=== PATIENT | male | born 1955 | race Caucasian/White ===

== ENCOUNTER → 2017-04-24 | Outpatient (CLI) | payer MEDICARE ==
[~2017-04-24] MED LIST: EFFEXOR XR DPS150 M1 PO; FENOFIBRATE145 MG PO; FLEXERIL-DPS10 MG PO; GLUCOPHAGE-DPS500 MG PO; HAWTHORN BERRY500 MG PO; LANTUS100 UNITS/ SQ; LIPITOR DPS40 MG PO; LORTAB 5-325 M1 EACH PO; MAGNESIUM250 M1 PO; MIRAPEX0.5 MG PO; NAPROSYN DPS500 MG PO; NEURONTIN DPS100 MG PO; NOVOLIN 70100 UNITS/ SQ; POTASSIUM GLUCONATE PO; SAW PALMETTO500 MG PO; SLO NIACIN DPS500 MG PO; ZESTORETIC 20/21 TAB PO
== END | disposition home or self-care (01) ==
LOC: RAD.S 07:32
PROC: 3E0R3GC Introduction of Other Therapeutic Substance into Spinal Canal, Percutaneous Approach (ICD-10-PCS; principal; 2017-04-24)
DX: M54.16 Radiculopathy, lumbar region (principal); M51.86 Other intervertebral disc disorders, lumbar region; M51.87 Other intervertebral disc disorders, lumbosacral region